=== PATIENT | female | born 1960 | race African-American/Black ===

== ENCOUNTER 2021-05-16 18:07 | Inpatient (IN) ==
[2021-05-16] MEDS ORDERED: SODIUM CHLORIDE 0.9% 1,000 ML IV STA (18:40)
[2021-05-16] MEDS ORDERED: AZITHROMYCIN INJ 500 MG in SODIUM CHLORIDE 0.9% 250 ML IV STA (20:08)
[2021-05-16 20:11] LABS: Hematocrit 45.1 VOL% (35.7-47.0); Hemoglobin 14.4 GM/DL (12.0-16.0); Immature Granulocytes % 0.8 %; Immature Granulocytes Absolute 0.04 #; Lymphocytes # 0.6 10*3/uL (1.4-4.0); Mean Corpuscular HGB Conc 31.9 GM/DL (32-36); Mean Corpuscular Volume 83.8 FL (87-102); Mean Platelet Volume 12.2 FL (9.6-12.0); Monocytes % 10.8 % (1.7-12.7); Neutrophils % 76.4 % (38.7-73.9); Platelet Count 137 T/CUMM (130-400); Red Blood Count 5.38 MC/CUMM (3.8-5.5); Red Cell Distribution Width 13.3 % (9.3-17.3); White Blood Count 5.2 T/CUMM (4-12)
[2021-05-16 20:45] LABS: Albumin 2.5 G/DL (3.4-5.0); Bilirubin,Total 1.6 MG/DL (0.20-1.00); Calcium 8.7 MG/DL (8.5-10.1); Ferritin 16645.6 ng/mL (8-252); Osmolality,Calculated 280.7 MOS/KG (273-304); Potassium 3.9 MMOL/L (3.5-5.1); Total Protein 7.3 G/DL (6.4-8.2)
[2021-05-16] MEDS ORDERED: ONDANSETRON 4 MG/2 ML VIAL IV PRN (21:15)
[2021-05-16] MEDS ORDERED: MELATONIN 3 MG TABLET PO PRN (21:15)
[2021-05-16] MEDS ORDERED: ACETAMINOPHEN 325 MG TABLET PO PRN (21:15)
[2021-05-16] MEDS ORDERED: ENOXAPARIN 40 MG/0.4 ML SYRINGE SUBCUT SCH (21:30)
[2021-05-16] MEDS ORDERED: cefTRIAXone 1,000 MG in SODIUM CHLORIDE 0.9% 100 ML IV SCH (21:30)
[2021-05-17] MEDS: ASCORBIC ACID 500 MG TABLET PO SCH ×4 (00:03→20:30)
[2021-05-17] MEDS: FAMOTIDINE 20 MG TABLET PO SCH ×4 (00:03→20:30)
[2021-05-17] MEDS: methylPREDNISolone SOD SUC 40 MG/1 ML VIAL IV SCH ×4 (01:28→20:30)
[2021-05-17 06:44] LABS: Hematocrit 41.3 VOL% (35.7-47.0); Hemoglobin 12.7 GM/DL (12.0-16.0); Immature Granulocytes % 0.8 %; Immature Granulocytes Absolute 0.04 #; Lymphocytes # 0.6 10*3/uL (1.4-4.0); Lymphocytes % 11.6 % (21.3-54.2); Mean Corpuscular HGB Conc 30.8 GM/DL (32-36); Mean Platelet Volume 11.7 FL (9.6-12.0); Monocytes % 5.3 % (1.7-12.7); Neutrophils % 82.3 % (38.7-73.9); Platelet Count 179 T/CUMM (130-400); Red Cell Distribution Width 13.3 % (9.3-17.3); White Blood Count 5.3 T/CUMM (4-12)
[2021-05-17 07:18] LABS: Albumin 2.2 G/DL (3.4-5.0); Bilirubin,Total 0.9 MG/DL (0.20-1.00); Calcium 8.6 MG/DL (8.5-10.1); Osmolality,Calculated 279.7 MOS/KG (273-304); Potassium 3.8 MMOL/L (3.5-5.1); Total Protein 6.6 G/DL (6.4-8.2)
[2021-05-17] MEDS: ZINC GLUCONATE 50 MG TABLET PO SCH ×2 (08:20→08:45)
[2021-05-17] MEDS: IVERMECTIN 3 MG TABLET PO SCH ×2 (08:20→08:45)
[2021-05-17] MEDS: CHOLECALCIFEROL 1,000 UNIT TABLET PO SCH ×2 (08:21→08:45)
[2021-05-17] MEDS: ENOXAPARIN 40 MG/0.4 ML SYRINGE SUBCUT SCH ×2 (08:21→08:44)
[2021-05-17] MEDS: cefTRIAXone 1,000 MG in SODIUM CHLORIDE 0.9% 100 ML IV SCH ×2 (08:22→08:45)
[2021-05-17] MEDS ORDERED: DEXAMETHASONE 4 MG/1 ML VIAL IV SCH (09:00)
[2021-05-17] MEDS: ALBUTEROL INHALER 18 GM INH SCH ×2 (16:45→17:59)
[2021-05-17] MEDS: AZITHROMYCIN INJ 500 MG in SODIUM CHLORIDE 0.9% 250 ML IV SCH (20:30)
[2021-05-18] MEDS: ALBUTEROL INHALER 18 GM INH SCH ×4 (00:30→21:15)
[2021-05-18] MEDS: methylPREDNISolone SOD SUC 40 MG/1 ML VIAL IV SCH ×4 (02:02→20:15)
[2021-05-18 05:50] LABS: Hemoglobin 13.2 GM/DL (12.0-16.0); Immature Granulocytes % 0.8 %; Immature Granulocytes Absolute 0.06 #; Lymphocytes # 0.7 10*3/uL (1.4-4.0); Lymphocytes % 8.9 % (21.3-54.2); Mean Corpuscular HGB Conc 30.7 GM/DL (32-36); Mean Corpuscular Volume 84.3 FL (87-102); Mean Platelet Volume 11.8 FL (9.6-12.0); Monocytes % 7.9 % (1.7-12.7); Neutrophils % 82.4 % (38.7-73.9); Platelet Count 215 T/CUMM (130-400); Red Cell Distribution Width 13.1 % (9.3-17.3); White Blood Count 7.8 T/CUMM (4-12)
[2021-05-18 06:38] LABS: Albumin 2.2 G/DL (3.4-5.0); Bilirubin,Total 1.2 MG/DL (0.20-1.00); Calcium 8.8 MG/DL (8.5-10.1); Ferritin 6702.5 ng/mL (8-252); Osmolality,Calculated 284.4 MOS/KG (273-304); Potassium 3.5 MMOL/L (3.5-5.1); Total Protein 6.6 G/DL (6.4-8.2)
[2021-05-18 07:12] LABS: Sedimentation Rate-Westergren 67 MM/HR (0-30)
[2021-05-18] MEDS: ZINC GLUCONATE 50 MG TABLET PO SCH (08:37)
[2021-05-18] MEDS: CHOLECALCIFEROL 1,000 UNIT TABLET PO SCH (08:37)
[2021-05-18] MEDS: ASCORBIC ACID 500 MG TABLET PO SCH ×2 (08:37→20:15)
[2021-05-18] MEDS: FAMOTIDINE 20 MG TABLET PO SCH ×2 (08:37→20:15)
[2021-05-18] MEDS: cefTRIAXone 1,000 MG in SODIUM CHLORIDE 0.9% 100 ML IV SCH (08:38)
[2021-05-18] MEDS: ENOXAPARIN 40 MG/0.4 ML SYRINGE SUBCUT SCH (08:38)
[2021-05-18] MEDS: IVERMECTIN 3 MG TABLET PO SCH (08:39)
[2021-05-18] MEDS: CETIRIZINE 10 MG TABLET PO SCH (08:41)
[2021-05-18] MEDS ORDERED: REMDESIVIR 200 MG in SODIUM CHLORIDE 0.9% 210 ML IV ONE (12:00)
[2021-05-18] MEDS: AZITHROMYCIN INJ 500 MG in SODIUM CHLORIDE 0.9% 250 ML IV SCH (20:15)
[2021-05-19] MEDS: ALBUTEROL INHALER 18 GM INH SCH ×4 (01:15→18:03)
[2021-05-19] MEDS: methylPREDNISolone SOD SUC 40 MG/1 ML VIAL IV SCH ×2 (03:27→10:10)
[2021-05-19 05:30] LABS: Basophils % 0.2 % (0.0-0.8); Hematocrit 40.4 VOL% (35.7-47.0); Hemoglobin 12.8 GM/DL (12.0-16.0); Immature Granulocytes % 0.8 %; Immature Granulocytes Absolute 0.08 #; Lymphocytes # 0.6 10*3/uL (1.4-4.0); Lymphocytes % 6.6 % (21.3-54.2); Mean Corpuscular HGB Conc 31.7 GM/DL (32-36); Mean Platelet Volume 11.5 FL (9.6-12.0); Monocytes % 6.8 % (1.7-12.7); Neutrophils % 85.6 % (38.7-73.9); Red Blood Count 4.81 MC/CUMM (3.8-5.5); Red Cell Distribution Width 13.2 % (9.3-17.3); White Blood Count 9.6 T/CUMM (4-12)
[2021-05-19 05:34] LABS: Platelet Count 289 T/CUMM (130-400)
[2021-05-19 06:07] LABS: Albumin 2.3 G/DL (3.4-5.0); Bilirubin,Total 0.8 MG/DL (0.20-1.00); Calcium 8.9 MG/DL (8.5-10.1); Ferritin 3123.9 ng/mL (8-252); Osmolality,Calculated 288.1 MOS/KG (273-304); Potassium 3.3 MMOL/L (3.5-5.1); Total Protein 6.4 G/DL (6.4-8.2)
[2021-05-19 07:13] LABS: Sedimentation Rate-Westergren 69 MM/HR (0-30)
[2021-05-19] MEDS ORDERED: POTASSIUM CHLORIDE 20 MEQ TABLET PO ONE (08:03)
[2021-05-19] MEDS: CHOLECALCIFEROL 1,000 UNIT TABLET PO SCH (10:11)
[2021-05-19] MEDS: ENOXAPARIN 40 MG/0.4 ML SYRINGE SUBCUT SCH (10:11)
[2021-05-19] MEDS: FAMOTIDINE 20 MG TABLET PO SCH ×2 (10:12→20:39)
[2021-05-19] MEDS: ASCORBIC ACID 500 MG TABLET PO SCH ×2 (10:12→20:39)
[2021-05-19] MEDS: cefTRIAXone 1,000 MG in SODIUM CHLORIDE 0.9% 100 ML IV SCH (10:18)
[2021-05-19] MEDS: CETIRIZINE 10 MG TABLET PO SCH (10:19)
[2021-05-19] MEDS: REMDESIVIR 100 MG in SODIUM CHLORIDE 0.9% 100 ML IV SCH (10:19)
[2021-05-19] MEDS: ZINC GLUCONATE 50 MG TABLET PO SCH (10:19)
[2021-05-20] MEDS: ALBUTEROL INHALER 18 GM INH SCH ×4 (00:30→18:05)
[2021-05-20 04:34] LABS: Basophils % 0.3 % (0.0-0.8); Hematocrit 39.9 VOL% (35.7-47.0); Hemoglobin 12.4 GM/DL (12.0-16.0); Immature Granulocytes % 1.8 %; Immature Granulocytes Absolute 0.19 #; Lymphocytes % 9.4 % (21.3-54.2); Mean Corpuscular HGB Conc 31.1 GM/DL (32-36); Mean Corpuscular Volume 84.9 FL (87-102); Mean Platelet Volume 12.2 FL (9.6-12.0); Monocytes % 7.1 % (1.7-12.7); Neutrophils % 81.4 % (38.7-73.9); Platelet Count 260 T/CUMM (130-400); Red Cell Distribution Width 13.2 % (9.3-17.3); White Blood Count 10.4 T/CUMM (4-12)
[2021-05-20 05:06] LABS: Calcium 8.5 MG/DL (8.5-10.1); Osmolality,Calculated 287.1 MOS/KG (273-304); Potassium 3.6 MMOL/L (3.5-5.1)
[2021-05-20 06:39] LABS: Anisocytosis 1+; Burr Cells Few; Platelet Estimate Normal
[2021-05-20] MEDS: cefTRIAXone 1,000 MG in SODIUM CHLORIDE 0.9% 100 ML IV SCH (08:24)
[2021-05-20] MEDS: ASCORBIC ACID 500 MG TABLET PO SCH ×2 (08:27→20:17)
[2021-05-20] MEDS: CETIRIZINE 10 MG TABLET PO SCH (08:27)
[2021-05-20] MEDS: ZINC GLUCONATE 50 MG TABLET PO SCH (08:27)
[2021-05-20] MEDS: DEXAMETHASONE 4 MG TABLET PO SCH (08:27)
[2021-05-20] MEDS: CHOLECALCIFEROL 1,000 UNIT TABLET PO SCH (08:27)
[2021-05-20] MEDS: ENOXAPARIN 40 MG/0.4 ML SYRINGE SUBCUT SCH (08:27)
[2021-05-20] MEDS: FAMOTIDINE 20 MG TABLET PO SCH ×2 (08:28→20:17)
[2021-05-20] MEDS: REMDESIVIR 100 MG in SODIUM CHLORIDE 0.9% 100 ML IV SCH (09:22)
[2021-05-21] MEDS: ALBUTEROL INHALER 18 GM INH SCH ×3 (01:30→20:20)
[2021-05-21] MEDS: ENOXAPARIN 40 MG/0.4 ML SYRINGE SUBCUT SCH (09:28)
[2021-05-21] MEDS: CHOLECALCIFEROL 1,000 UNIT TABLET PO SCH (09:29)
[2021-05-21] MEDS: cefTRIAXone 1,000 MG in SODIUM CHLORIDE 0.9% 100 ML IV SCH (09:29)
[2021-05-21] MEDS: DEXAMETHASONE 4 MG TABLET PO SCH (09:30)
[2021-05-21] MEDS: ZINC GLUCONATE 50 MG TABLET PO SCH (09:30)
[2021-05-21] MEDS: CETIRIZINE 10 MG TABLET PO SCH (09:30)
[2021-05-21] MEDS: ASCORBIC ACID 500 MG TABLET PO SCH ×2 (09:30→20:20)
[2021-05-21] MEDS: FAMOTIDINE 20 MG TABLET PO SCH ×2 (09:30→20:20)
[2021-05-21] MEDS: REMDESIVIR 100 MG in SODIUM CHLORIDE 0.9% 100 ML IV SCH (10:17)
[2021-05-22] MEDS: ALBUTEROL INHALER 18 GM INH SCH ×3 (01:23→13:11)
[2021-05-22 06:14] LABS: Albumin 2.1 G/DL (3.4-5.0); Bilirubin,Total 0.7 MG/DL (0.20-1.00); Calcium 8.5 MG/DL (8.5-10.1); Osmolality,Calculated 279.5 MOS/KG (273-304); Potassium 3.3 MMOL/L (3.5-5.1)
[2021-05-22] MEDS: ZINC GLUCONATE 50 MG TABLET PO SCH (08:47)
[2021-05-22] MEDS: FAMOTIDINE 20 MG TABLET PO SCH (08:47)
[2021-05-22] MEDS: CHOLECALCIFEROL 1,000 UNIT TABLET PO SCH (08:47)
[2021-05-22] MEDS: ASCORBIC ACID 500 MG TABLET PO SCH (08:47)
[2021-05-22] MEDS: CETIRIZINE 10 MG TABLET PO SCH (08:47)
[2021-05-22] MEDS: DEXAMETHASONE 4 MG TABLET PO SCH (08:47)
[2021-05-22] MEDS: ENOXAPARIN 40 MG/0.4 ML SYRINGE SUBCUT SCH (08:48)
[2021-05-22] MEDS: cefTRIAXone 1,000 MG in SODIUM CHLORIDE 0.9% 100 ML IV SCH (08:49)
[2021-05-22] MEDS ORDERED: POTASSIUM CHLORIDE 20 MEQ TABLET PO ONE (08:56)
[2021-05-22] MEDS: REMDESIVIR 100 MG in SODIUM CHLORIDE 0.9% 100 ML IV SCH (09:42)
[2021-05-22 14:50] VITALS: BP 119/79
== END 2021-05-22 14:12 | disposition home or self-care (01) | DRG 177 ==
LOC: N.ED 18:07 → SUATTDRO 21:15 → N.EDINP 21:15 → N.2E 23:39
PROVIDERS: ADMIT Internal Medicine; ATTEND Internal Medicine